=== PATIENT | male | born 1995 ===

== ENCOUNTER 2018-01-23 10:41 | Emergency (ER) | payer OTHER ==
[~2018-01-23] VITALS: Ht 172.7 cm; Wt 72.6 kg
[~2018-01-23 10:41] MED LIST: AZIT250 PO; Bactrim Ds Tab1 EACH PO; CEPH500 PO; RXPROM25 PO
[2018-01-23 12:15] LABS: Calcium, Ionized (POC) 1.26 mmol/L (1.10-1.46); Chloride (POC) 104 mmol/L (98-108); Creatinine (POC) 0.8 mg/dL (0.8-1.3); Glucose (ISTAT POC) 101 mg/dL (70-99); Hemoglobin (POC) 16.7 g/dL (13.5-17.5); Potassium (POC) 4.2 mmol/L (3.5-5.5); Sodium (POC) 141 mmol/L (135-148); Total CO2 (POC) 25 mmol/L (21-32)
== END 2018-01-23 12:40 | disposition home or self-care (01) ==
LOC: ER 10:41
PROVIDERS: Emergency Medicine
DX: R41.82 Altered mental status, unspecified (principal); F17.200 Nicotine dependence, unspecified, uncomplicated
CPT/HCPCS: 36415; 80047; 85014; 99282

== ENCOUNTER 2019-11-10 12:10 | Emergency (ER) | payer OTHER ==
[~2019-11-10] VITALS: Ht 170.2 cm; Wt 73.9 kg
[2019-11-10] MEDS ORDERED: IBUP800 PO (13:24)
== END 2019-11-10 13:50 | disposition home or self-care (01) ==
LOC: ER 12:10
DX: S93.402A Sprain of unspecified ligament of left ankle, initial encounter (principal); F17.200 Nicotine dependence, unspecified, uncomplicated; X58.XXXA Exposure to other specified factors, initial encounter; Y93.72 Activity, wrestling
CPT/HCPCS: 29515; 73600; 99283-25

== ENCOUNTER 2021-11-19 17:00 | Emergency (ER) | payer OTHER ==
[~2021-11-19] VITALS: Ht 172.7 cm; Wt 79.4 kg
[~2021-11-19 17:00] MED LIST changes: +IBUP800 PO
[2021-11-19] MEDS ORDERED: Norco 5-325 Ta1 EACH PO (18:27)
== END 2021-11-19 18:30 | disposition home or self-care (01) ==
LOC: ER 17:00
DX: S29.9XXA Unspecified injury of thorax, initial encounter (principal); W17.89XA Other fall from one level to another, initial encounter; Y99.0 Civilian activity done for income or pay; F17.200 Nicotine dependence, unspecified, uncomplicated
CPT/HCPCS: 71101; 96372; 99283-25; J1885

== ENCOUNTER 2025-05-25 12:24 | Emergency (ER) | payer OTHER ==
[~2025-05-25] VITALS: Ht 170.2 cm; Wt 95.2 kg
[~2025-05-25 12:24] MED LIST changes: +Norco 5-325 Ta1 EACH PO
[2025-05-25 12:27] VITALS: BP 145/77
[2025-05-25] MEDS ORDERED: Ondansetron HCl 2 MG / ML 2ML Vial IV ONE (12:40)
[2025-05-25] MEDS ORDERED: Morphine Sulfate 4 MG/1 ML Injection IV ONE (12:40)
[2025-05-25 13:06] LABS: BASOPHILS ABSOLUTE AUTO 0.06 K/mm3 (0.00-0.23); BASOPHILS PERCENT AUTO 0 % (0-2); EOSINOPHILS ABSOLUTE AUTO 0.02 K/mm3 (0.00-0.68); EOSINOPHILS PERCENT AUTO 0 % (0-6); Hematocrit 47.4 % (37.0-53.0); Hemoglobin 16.7 g/dL (13.5-17.5); IMMATURE GRAN ABSOLUTE AUTO 0.23 K/mm3 (0.00-0.10); IMMATURE GRAN PERCENT AUTO 1 % (0-1); LYMPHOCYTES ABSOLUTE AUTO 1.66 K/mm3 (0.84-5.20); LYMPHOCYTES PERCENT AUTO 8 % (21-46); MONOCYTES ABSOLUTE AUTO 1.48 K/mm3 (0.16-1.47); MONOCYTES PERCENT AUTO 7 % (4-13); Mean Corpuscular HGB Conc 35.2 g/dL (31.5-36.5); Mean Corpuscular Volume 88 fL (80-100); NEUTROPHILS ABSOLUTE AUTO 17.51 K/mm3 (1.96-9.15); NEUTROPHILS PERCENT AUTO 84 % (41-73); NRBC ABSOLUTE 0.00 K/mm3 (0.00-0.02); NRBC Auto 0.0 /100 WBC (0.0-0.2); Platelet Count 306 K/mm3 (150-400); RDW Coefficient Variation 11.8 % (11.7-14.2); RDW Standard Deviation 37.8 fL (35.1-46.3)
[2025-05-25] MEDS ORDERED: HYDROmorphone HCl/Pf 1MG SYR IV ONE (13:25)
[2025-05-25 13:40] LABS: Alanine Aminotransfer (ALT/SGP 40.0 U/L (12-78); Albumin, Blood 4.7 g/dL (3.4-5.0); Albumin/Globulin Ratio 1.3 (0.8-1.8); Anion Gap 9.0 mmol/L (3-11); Aspartate Aminotrans (AST/SGOT 31.0 U/L (12-37); Bilirubin, Total 0.6 mg/dL (0.1-1.0); Blood Urea Nitrogen 18.0 mg/dL (8-24); CO2, Blood 26.0 mmol/L (21-32); Calcium, Blood 9.6 mg/dL (8.5-10.1); Chloride, Blood 103.0 mmol/L (98-108); Creatinine, Blood 0.97 mg/dL (0.60-1.20); Globulin, Blood 3.7 g/dL (2.2-4.0); Glucose, Blood 85.0 mg/dL (70-99); Potassium, Blood 3.7 mmol/L (3.5-5.5); Sodium, Blood 134.0 mmol/L (136-145); Total Protein, Blood 8.4 g/dL (6.4-8.2)
[2025-05-25] MEDS ORDERED: IBUP800 PO (14:09)
[2025-05-25] MEDS ORDERED: Ketorolac Tromethamine 30mg Vial IV ONE (14:10)
== END 2025-05-25 14:21 | disposition home or self-care (01) ==
LOC: ER 12:24
PROVIDERS: Emergency Medicine
DX: S00.11XA Contusion of right eyelid and periocular area, initial encounter (principal); S30.811A Abrasion of abdominal wall, initial encounter; M54.2 Cervicalgia; W22.8XXA Striking against or struck by other objects, initial encounter; F17.200 Nicotine dependence, unspecified, uncomplicated; Z79.899 Other long term (current) drug therapy
CPT/HCPCS: 70450; 71260; 72125; 74177; 80053; 85025; 93005; 93010; 96374-59; 96375-59; 99284-25; J1171; J1885; J2270; J2405; Q9967